=== PATIENT | male | born 1945 | race Caucasian/White ===

== ENCOUNTER 2023-01-03 11:07 | Observation (INO) | payer MEDICARE ==
[2023-01-03] MEDS ORDERED: Acetaminophen 325 MG Tab PO ONE (12:32)
[2023-01-03] MEDS ORDERED: Cyclobenzaprine 10 MG Tab PO ONE (12:32)
[2023-01-03] MEDS ORDERED: Sodium Chloride 0.9% 1,000 ML IV SCH (13:15)
[2023-01-03 13:25] LABS: HEMATOCRIT 41.1 % (38.4-49.7); HEMOGLOBIN 14.5 g/dL (12.9-16.9); MEAN CORPUSCULAR HEMOGLOBIN 30.1 pg (31.6-35.5); MEAN CORPUSCULAR HGB CONC 35.3 g/dL (31.6-35.5); MEAN CORPUSCULAR VOLUME 85.4 fL (81.4-99.0); RED BLOOD CELL COUNT 4.81 M/uL (4.14-5.76)
[2023-01-03 13:47] LABS: APPEARANCE,URINE CLEAR (CLEAR); BILIRUBIN,URINE NEGATIVE (NEGATIVE); COLOR,URINE YELLOW (YELLOW); GLUCOSE,URINE 500 mg/dL (NEGATIVE); KETONES,URINE TRACE mg/dL (NEGATIVE); LEUKOCYTE ESTERASE,URINE NEGATIVE (NEGATIVE); NITRITE,URINE NEGATIVE (NEGATIVE); OCCULT BLOOD,URINE SMALL (NEGATIVE); PROTEIN,URINE 100 mg/dL (NEGATIVE); UROBILINOGEN,URINE 0.2 EU/dL (0.2-1.0)
[2023-01-03 13:52] LABS: A/G RATIO 0.9 (1.2-2.2); ALANINE AMINOTRANSFERASE,ALT 32 U/L (12-78); ALBUMIN 3.2 g/dL (3.4-5.0); ALKALINE PHOSPHATASE 99 U/L (46-116); ASPARTATE AMNIOTRANSFERASE,AST 34 U/L (15-37); BILIRUBIN TOTAL 0.7 mg/dL (0.2-1.0); BLOOD UREA NITROGEN,BUN 8 mg/dL (7-18); CALCIUM 8.5 mg/dL (8.5-10.1); CARBON DIOXIDE,CO2 25 mmol/L (21-32); CHLORIDE,CL 98 mmol/L (100-108); CREATININE 0.8 mg/dL (0.8-1.3); ESTIMATED GFR 92 mL/min (>60); GLUCOSE RANDOM 177 mg/dL (74-106); PRO B-TYPE NATRIUR PEPT,BNPPRO 346 pg/mL (5-450); PROTEIN TOTAL,TP 6.9 g/dL (6.4-8.2); SODIUM,NA 133 mmol/L (140-148)
[2023-01-03 13:52] LABS: AMORPHOUS SEDIMENT,URINE RARE; BACTERIA,URINE NOT SEEN; EPITHELIAL CELLS,URINE NOT SEEN; MUCUS,URINE NOT SEEN; RBC,URINE 0-5 (0-5); WBC,URINE NOT SEEN (0-5)
[2023-01-03 13:54] LABS: ANION GAP 12.8 mmol/L (5.0-14.0); POTASSIUM,K 2.8 mmol/L (3.6-5.2)
[2023-01-03] MEDS: NS + KCl 20mEq/L 1,000 ML IV SCH ×2 (15:28→21:39)
[2023-01-03] MEDS ORDERED: Magnesium Hydroxide 400 MG/5 ML Susp 30 ML Cup PO PRN (16:13)
[2023-01-03] MEDS ORDERED: Ondansetron 4 MG/2 ML SDV IV PRN (16:13)
[2023-01-03] MEDS ORDERED: Ondansetron 4 MG Tab.DIS PO PRN (16:13)
[2023-01-03] MEDS ORDERED: Sennosides/Docusate Sodium 50-8.6 MG Tab PO PRN (16:13)
[2023-01-03] MEDS ORDERED: traMADol 50 MG Tab PO PRN (16:13)
[2023-01-03] MEDS ORDERED: Potassium Chloride 20 MEQ Tab.ER PO ONE (17:00)
[2023-01-03] MEDS: Enoxaparin 30 MG/0.3 ML Syringe SUBCUT SCH (17:05)
[2023-01-03] MEDS ORDERED: Insulin Lispro 100 Unit/ML 3 ML KwikPen SUBCUT SCH (17:15)
[2023-01-03] MEDS: Acetaminophen 325 MG Tab PO PRN (21:16)
[2023-01-03] MEDS: Melatonin 3 MG Tab PO SCH (21:19)
[2023-01-04] MEDS: Acetaminophen 325 MG Tab PO PRN ×2 (04:24→16:01)
[2023-01-04] MEDS: NS + KCl 20mEq/L 1,000 ML IV SCH ×2 (04:25→11:12)
[2023-01-04 05:50] LABS: ANION GAP 13.3 mmol/L (5.0-14.0); CALCIUM 8.3 mg/dL (8.5-10.1); CREATININE 0.7 mg/dL (0.8-1.3); EST CRCL DRUG DOSING (CG) 86.86 mL/min; POTASSIUM,K 3.3 mmol/L (3.6-5.2)
[2023-01-04] MEDS: Insulin Lispro 100 Unit/ML 3 ML KwikPen SUBCUT SCH ×4 (08:13→21:46)
[2023-01-04] MEDS ORDERED: Potassium Chloride 20 MEQ Tab.ER PO ONE (08:30)
[2023-01-04] MEDS: Enoxaparin 30 MG/0.3 ML Syringe SUBCUT SCH (17:41)
[2023-01-04] MEDS: Doxycycline 100 MG in Sodium Chloride 0.9% 100 ML IV SCH (18:24)
[2023-01-04] MEDS ORDERED: Vancomycin 1 GM SDV IV SCH (19:00)
[2023-01-04] MEDS: Melatonin 3 MG Tab PO SCH (20:03)
[2023-01-05] MEDS: Doxycycline 100 MG in Sodium Chloride 0.9% 100 ML IV SCH ×2 (06:32→17:21)
[2023-01-05] MEDS ORDERED: Sodium Chloride 0.9% 10 ML Syringe IV PRN (07:14)
[2023-01-05] MEDS: Insulin Lispro 100 Unit/ML 3 ML KwikPen SUBCUT SCH ×2 (08:02→13:12)
[2023-01-05 13:53] LABS: HEMATOCRIT 36.3 % (38.4-49.7); HEMOGLOBIN 12.6 g/dL (12.9-16.9); MEAN CORPUSCULAR HEMOGLOBIN 29.8 pg (31.6-35.5); MEAN CORPUSCULAR HGB CONC 34.7 g/dL (31.6-35.5); MEAN CORPUSCULAR VOLUME 85.8 fL (81.4-99.0); RED BLOOD CELL COUNT 4.23 M/uL (4.14-5.76); WHITE BLOOD CELL COUNT,WBC 1.8 K/uL (3.2-11.0)
[2023-01-05 14:06] LABS: CALCIUM 8.5 mg/dL (8.5-10.1); CREATININE 0.7 mg/dL (0.8-1.3); EST CRCL DRUG DOSING (CG) 86.86 mL/min
[2023-01-05] MEDS: Melatonin 3 MG Tab PO SCH (21:55)
[2023-01-06] MEDS: Doxycycline 100 MG in Sodium Chloride 0.9% 100 ML IV SCH (05:20)
[2023-01-06 05:21] LABS: HEMOGLOBIN 12.9 g/dL (12.9-16.9); MEAN CORPUSCULAR HEMOGLOBIN 30.2 pg (31.6-35.5); MEAN CORPUSCULAR HGB CONC 35.8 g/dL (31.6-35.5); MEAN CORPUSCULAR VOLUME 84.3 fL (81.4-99.0); RED BLOOD CELL COUNT 4.27 M/uL (4.14-5.76); WHITE BLOOD CELL COUNT,WBC 3.9 K/uL (3.2-11.0)
[2023-01-06] MEDS ORDERED: Heparin Sodium 5,000 Units/ML Vial SUBCUT SCH (22:00)
[2023-01-10 13:12] LABS: A. PHAGOCYTOPHILUM IGG Negative (Neg:<1:64); A. PHAGOCYTOPHILUM IGM Negative (Neg:<1:20)
== END 2023-01-06 13:30 | disposition home or self-care (01) ==
LOC: JP.ED 11:07 → JP.MS 16:13
PROVIDERS: ADMIT Internal Medicine; ATTEND Internal Medicine
DX: S70.02XA Contusion of left hip, initial encounter (principal); M62.81 Muscle weakness (generalized); R26.9 Unspecified abnormalities of gait and mobility; E87.6 Hypokalemia; E86.0 Dehydration; E78.00 Pure hypercholesterolemia, unspecified; E11.9 Type 2 diabetes mellitus without complications; Z20.822 Contact with and (suspected) exposure to COVID-19; Z79.84 Long term (current) use of oral hypoglycemic drugs; Z79.899 Other long term (current) drug therapy; W18.31XA Fall on same level due to stepping on an object, initial encounter
CPT/HCPCS: 36415; 70450; 71046; 72170; 73552; 80048; 80053; 81001; 82947; 83605; 83880; 84132; 84145; 84484; 85027; 86666; 87040; 87177; 87209; 87493; 93005; 96360; 96361; 97110; 97161; 97165; 97530; 99222; 99232; 99239; 99285; A9270; J1650; J1815; J3370; J3480; J3490; J7030; J7050; U0002

== ENCOUNTER 2024-01-19 21:04 | Inpatient (IN) | payer MEDICARE ==
[2024-01-19 21:35] LABS: BASOPHILS ABSOLUTE AUTO 0.06 K/uL (0.00-0.10); BASOPHILS PERCENT AUTO 0.4 % (0.1-1.3); EOSINOPHILS ABSOLUTE AUTO 0.11 K/uL (0.00-0.40); EOSINOPHILS PERCENT AUTO 0.7 % (0.0-5.4); HEMATOCRIT 33.7 % (38.4-49.7); HEMOGLOBIN 11.7 g/dL (12.9-16.9); IMMATURE GRAN PERCENT AUTO 0.7 % (0.0-0.7); LYMPHOCYTES ABSOLUTE AUTO 0.68 K/uL (0.8-3.3); LYMPHOCYTES PERCENT AUTO 4.5 % (11.4-47.7); MEAN CORPUSCULAR HEMOGLOBIN 29.8 pg (31.6-35.5); MEAN CORPUSCULAR HGB CONC 34.7 g/dL (31.6-35.5); MEAN CORPUSCULAR VOLUME 85.8 fL (81.4-99.0); MONOCYTES ABSOLUTE AUTO 1.75 K/uL (0.20-0.90); MONOCYTES PERCENT AUTO 11.6 % (3.3-12.6); NEUTROPHILS ABSOLUTE AUTO 12.44 K/uL (1.0-7.6); NEUTROPHILS PERCENT AUTO 82.1 % (40.0-78.1); PLATELET COUNT,PLT 366 K/uL (130-375); RED BLOOD CELL COUNT 3.93 M/uL (4.14-5.76); WHITE BLOOD CELL COUNT,WBC 15.1 K/uL (3.2-11.0)
[2024-01-19 21:38] LABS: APPEARANCE,URINE CLEAR (CLEAR); BILIRUBIN,URINE NEGATIVE (NEGATIVE); COLOR,URINE YELLOW (YELLOW); GLUCOSE,URINE 500 mg/dL (NEGATIVE); KETONES,URINE NEGATIVE (NEGATIVE); LEUKOCYTE ESTERASE,URINE NEGATIVE (NEGATIVE); NITRITE,URINE NEGATIVE (NEGATIVE); OCCULT BLOOD,URINE TRACE-INTACT (NEGATIVE); PH,URINE 5.5 (5.0-8.0); PROTEIN,URINE NEGATIVE (NEGATIVE); UROBILINOGEN,URINE 0.2 EU/dL (0.2-1.0)
[2024-01-19 21:49] LABS: AMORPHOUS SEDIMENT,URINE NOT SEEN; BACTERIA,URINE RARE; EPITHELIAL CELLS,URINE NOT SEEN; MUCUS,URINE NOT SEEN; RBC,URINE 0-5 (0-5); WBC,URINE 0-5 (0-5)
[2024-01-19 21:53] LABS: ANION GAP 13.6 mmol/L (5.0-14.0); C-REACTIVE PROTEIN 7.72 mg/dL (<0.50); CALCIUM 8.7 mg/dL (8.5-10.1); CREATININE 0.7 mg/dL (0.8-1.3); EST CRCL DRUG DOSING (CG) 85.82 mL/min; POTASSIUM,K 3.6 mmol/L (3.6-5.2)
[2024-01-19 22:00] LABS: LACTIC ACID 1.1 mmol/L (0.4-2.0)
[2024-01-19] MEDS: Sodium Chloride 0.9% 1,000 ML IV SCH (23:25)
[2024-01-20] MEDS: Melatonin 3 MG Tab PO SCH (00:11)
[2024-01-20] MEDS ORDERED: Naloxone 0.4 MG/ML SDV IVPUSH PRN (00:22)
[2024-01-20] MEDS ORDERED: Bisacodyl 5 MG Tab PO PRN (00:22)
[2024-01-20] MEDS ORDERED: Ondansetron 4 MG Tab.DIS PO PRN (00:22)
[2024-01-20] MEDS ORDERED: Morphine 2 MG/ML SYRINGE IVPUSH PRN (00:22)
[2024-01-20] MEDS ORDERED: Piperacillin/Tazobactam 2.25 GM in Sodium Chloride 0.9% 50 ML IV SCH (00:22)
[2024-01-20] MEDS ORDERED: Docusate Sodium 100 MG Cap PO PRN (00:22)
[2024-01-20] MEDS ORDERED: Ondansetron 4 MG/2 ML SDV IV PRN (00:22)
[2024-01-20] MEDS: Enoxaparin 40 MG/0.4 ML Syringe SUBCUT SCH (00:40)
[2024-01-20] MEDS: Piperacillin/Tazobactam 4.5 GM in Sodium Chloride 0.9% 100 ML IV ONE (01:26)
[2024-01-20] MEDS: Sodium Chloride 0.9% 1,000 ML IV SCH (01:27)
[2024-01-20] MEDS: Piperacillin/Tazobactam 4.5 GM in Sodium Chloride 0.9% 100 ML IV SCH (05:05)
[2024-01-20 05:13] LABS: BASOPHILS ABSOLUTE AUTO 0.07 K/uL (0.00-0.10); BASOPHILS PERCENT AUTO 0.5 % (0.1-1.3); EOSINOPHILS ABSOLUTE AUTO 0.26 K/uL (0.00-0.40); HEMATOCRIT 31.3 % (38.4-49.7); HEMOGLOBIN 10.7 g/dL (12.9-16.9); IMMATURE GRAN ABSOLUTE AUTO 0.05 K/uL (0.00-0.23); IMMATURE GRAN PERCENT AUTO 0.4 % (0.0-0.7); LYMPHOCYTES ABSOLUTE AUTO 1.64 K/uL (0.8-3.3); LYMPHOCYTES PERCENT AUTO 12.4 % (11.4-47.7); MEAN CORPUSCULAR HEMOGLOBIN 29.7 pg (31.6-35.5); MEAN CORPUSCULAR HGB CONC 34.2 g/dL (31.6-35.5); MEAN CORPUSCULAR VOLUME 86.9 fL (81.4-99.0); MONOCYTES ABSOLUTE AUTO 1.62 K/uL (0.20-0.90); MONOCYTES PERCENT AUTO 12.2 % (3.3-12.6); NEUTROPHILS ABSOLUTE AUTO 9.59 K/uL (1.0-7.6); NEUTROPHILS PERCENT AUTO 72.5 % (40.0-78.1); PLATELET COUNT,PLT 337 K/uL (130-375); WHITE BLOOD CELL COUNT,WBC 13.2 K/uL (3.2-11.0)
[2024-01-20 05:31] LABS: CALCIUM 8.5 mg/dL (8.5-10.1); CREATININE 0.6 mg/dL (0.8-1.3); EST CRCL DRUG DOSING (CG) 89.69 mL/min
[2024-01-20] MEDS: Insulin Lispro 100 Unit/ML 3 ML KwikPen SUBCUT SCH (07:56)
[2024-01-20] MEDS: Potassium Chloride 20 MEQ Tab.ER PO ONE (09:12)
[2024-01-20] MEDS: Insulin Glargine,Human Rec. Analog 100 Units/ML 3 ML Pen SUBCUT SCH (09:12)
[2024-01-20] MEDS: cefTRIAXone 2 GM in Sodium Chloride 0.9% 50 ML IV SCH (15:58)
[2024-01-21 06:17] LABS: HEMATOCRIT 33.2 % (38.4-49.7); HEMOGLOBIN 11.3 g/dL (12.9-16.9); MEAN CORPUSCULAR HEMOGLOBIN 29.5 pg (31.6-35.5); MEAN CORPUSCULAR VOLUME 86.7 fL (81.4-99.0); RED BLOOD CELL COUNT 3.83 M/uL (4.14-5.76); WHITE BLOOD CELL COUNT,WBC 8.9 K/uL (3.2-11.0)
[2024-01-21 06:37] LABS: CALCIUM 8.7 mg/dL (8.5-10.1); CREATININE 0.6 mg/dL (0.8-1.3); EST CRCL DRUG DOSING (CG) 89.69 mL/min
[2024-01-21 06:38] LABS: ANION GAP 12.7 mmol/L (5.0-14.0); POTASSIUM,K 2.7 mmol/L (3.6-5.2)
[2024-01-21] MEDS: Acetaminophen 325 MG Tab PO PRN (07:50)
[2024-01-21] MEDS: Potassium Chloride 20 MEQ Tab.ER PO ONE ×2 (08:59→20:35)
[2024-01-21] MEDS: Potassium Chloride 10 MEQ in Premix Bag 1 BAG IV SCH (11:01)
[2024-01-21] MEDS: Lactobacillus Rhamnosus GG (Probiotic) Cap PO SCH (20:35)
[2024-01-22 05:53] LABS: CREATININE 0.5 mg/dL (0.8-1.3); EST CRCL DRUG DOSING (CG) 107.63 mL/min; POTASSIUM,K 3.8 mmol/L (3.6-5.2)
[2024-01-22 05:54] LABS: ANION GAP 12.8 mmol/L (5.0-14.0)
[2024-01-22] MEDS: Sulfamethoxazole/Trimethoprim 800-160 MG Tab PO SCH (09:31)
[2024-01-22] MEDS ORDERED: Sodium Chloride 0.9% 100 ML IV SCH (11:15)
[2024-01-22] MEDS ORDERED: Iopamidol 612 MG/ML 100 ML Bottle IV SCH (11:15)
[2024-01-22] MEDS: Sodium Chloride 0.9% 10 ML Syringe FLUSH ONE (21:22)
[2024-01-22] MEDS: Sodium Chloride 0.9% 1,000 ML IV SCH (23:50)
[2024-01-23 05:36] LABS: HEMATOCRIT 33.6 % (38.4-49.7); HEMOGLOBIN 11.3 g/dL (12.9-16.9); MEAN CORPUSCULAR HEMOGLOBIN 29.2 pg (31.6-35.5); MEAN CORPUSCULAR HGB CONC 33.6 g/dL (31.6-35.5); MEAN CORPUSCULAR VOLUME 86.8 fL (81.4-99.0); RED BLOOD CELL COUNT 3.87 M/uL (4.14-5.76); WHITE BLOOD CELL COUNT,WBC 6.8 K/uL (3.2-11.0)
[2024-01-23 05:53] LABS: ANION GAP 7.8 mmol/L (5.0-14.0); CREATININE 0.6 mg/dL (0.8-1.3); EST CRCL DRUG DOSING (CG) 89.69 mL/min; POTASSIUM,K 4.2 mmol/L (3.6-5.2)
[2024-01-23] MEDS ORDERED: fentaNYL 50 MCG/ML SDV ONE (10:09)
[2024-01-23] MEDS ORDERED: Propofol 200 MG/20 ML SDV ONE (10:09)
[2024-01-23] MEDS: Lidocaine 1% with EPINEPHrine 1:100,000 50 ML MDV ONE (13:34)
[2024-01-23] MEDS: Bupivacaine 0.5% 50 ML MDV ONE (13:34)
[2024-01-24] MEDS: oxyCODONE 5 MG Tab PO PRN (03:25)
[2024-01-24] MEDS: Empagliflozin 25 MG Tab PO SCH (13:33)
[2024-01-25 07:27] LABS: HEMATOCRIT 30.9 % (38.4-49.7); HEMOGLOBIN 10.4 g/dL (12.9-16.9); MEAN CORPUSCULAR HEMOGLOBIN 29.5 pg (31.6-35.5); MEAN CORPUSCULAR HGB CONC 33.7 g/dL (31.6-35.5); MEAN CORPUSCULAR VOLUME 87.8 fL (81.4-99.0); RED BLOOD CELL COUNT 3.52 M/uL (4.14-5.76)
[2024-01-25 07:42] LABS: ANION GAP 7.5 mmol/L (5.0-14.0); CALCIUM 8.6 mg/dL (8.5-10.1); CREATININE 0.6 mg/dL (0.8-1.3); EST CRCL DRUG DOSING (CG) 89.69 mL/min; POTASSIUM,K 3.9 mmol/L (3.6-5.2)
[2024-01-25] MEDS: Sulfamethoxazole/Trimethoprim 800-160 MG Tab PO SCH (08:49)
== END 2024-01-25 11:13 | disposition home or self-care (01) | DRG 638 ==
LOC: JP.ED 21:04 → JP.MS 23:28
PROVIDERS: ADMIT Hospitalist; ATTEND Internal Medicine
PROC: 0J990ZZ Drainage of Buttock Subcutaneous Tissue and Fascia, Open Approach (ICD-10-PCS; principal; 2024-01-23 10:40)
DX: R53.1 Weakness (principal); E11.69 Type 2 diabetes mellitus with other specified complication; L03.317 Cellulitis of buttock; Z79.899 Other long term (current) drug therapy; E11.628 Type 2 diabetes mellitus with other skin complications; H54.7 Unspecified visual loss; E78.00 Pure hypercholesterolemia, unspecified; M62.81 Muscle weakness (generalized); E11.622 Type 2 diabetes mellitus with other skin ulcer; L98.419 Non-pressure chronic ulcer of buttock with unspecified severity; E11.65 Type 2 diabetes mellitus with hyperglycemia; E87.6 Hypokalemia; G30.1 Alzheimer's disease with late onset; F02.A0 Dementia in other diseases classified elsewhere, mild, without behavioral disturbance, psychotic disturbance, mood disturbance, and anxiety; Z96.649 Presence of unspecified artificial hip joint; Z88.8 Allergy status to other drugs, medicaments and biological substances; Z79.2 Long term (current) use of antibiotics; Z79.4 Long term (current) use of insulin; Z79.84 Long term (current) use of oral hypoglycemic drugs; Z90.89 Acquired absence of other organs
CPT/HCPCS: 36415; 80048; 81001; 83605; 85025; 86140; 87040; 99284; 99285; J7030; 00300-QZ; 72193; 72193-26; 75989; 76377; 76881-26-RT; 76881-RT; 80202; 82947; 84132; 85027; 87070; 87075; 87077; 87186; 87205; 97110-GO; 97110-GP; 97161-GP; 97165-GO; 97530-GP; 99223; 99233; 99238; A9270-GY; J0665; J0696; J0713; J1650; J1815; J1815-GY; J2543; J2704; J3010; J3370; J3480; J3490; J7050